=== PATIENT | male | born 1945 | race Caucasian/White ===

== ENCOUNTER 2022-01-05 17:34 | Inpatient (IN) | payer MEDICARE ==
[~2022-01-05] VITALS: Ht 172.7 cm; Wt 84.1 kg
[2022-01-05] MEDS: epiNEPHrine 5 MG in NS 250ml IV.SOLN IV SCH ×2 (18:07→23:00)
[2022-01-05 18:08] LABS: HEMOGLOBIN 12.6 g/dl (14.0-17.9)
[2022-01-05 18:10] LABS: BASOPHILS % (AUTO) 0.1 % (0-1); EOSINOPHILS % (AUTO) 0.1 % (0-6); HEMATOCRIT 38.2 % (42.0-52.0); LYMPHOCYTES # (AUTO) 0.8 X10'3 (1.1-4.8); MEAN CORPUSCULAR HEMOGLOBIN 30.4 PG (27.0-31.0); MEAN CORPUSCULAR VOLUME 92.2 FL (78-98); MEAN PLATELET VOLUME 8.4 FL (7.4-10.4); MONOCYTES # (AUTO) 0.5 X10'3 (0-0.9); MONOCYTES % (AUTO) 4.3 % (2-12); NEUTROPHILS # (AUTO) 10.2 X10'3 (1.8-7.7); NEUTROPHILS % (AUTO) 88.5 % (42-75); PLATELET COUNT 307 X10'3 (140-440); RED BLOOD COUNT 4.14 X10'6 (4.70-6.10); RED CELL DISTRIBUTION WIDTH 13.1 % (11.5-14.5); WHITE BLOOD COUNT 11.5 X10'3 (4.5-11.0)
[2022-01-05] MEDS ORDERED: morphine 2 MG/ML inj. syringe IV PRN (18:10)
[2022-01-05] MEDS ORDERED: acetaminophen 325mg tablet PO PRN ×2 (18:10)
[2022-01-05] MEDS ORDERED: potassium Cl 20 mEq SR tablet PO PRN ×2 (18:10)
[2022-01-05] MEDS ORDERED: morphine 4 MG/ML inj SYRINge IV PRN (18:10)
[2022-01-05] MEDS ORDERED: magnesium hydroxide 30ml (MOM) UD suspension PO PRN (18:10)
[2022-01-05] MEDS ORDERED: ondansetron/PF 4mg/2ml inj IV PRN (18:10)
[2022-01-05 18:16] LABS: APTT 23 SECONDS (22-32)
[2022-01-05 18:19] LABS: ALANINE AMINOTRANSFERASE 25 U/L (12-78); ALBUMIN 3.9 G/DL (3.4-5.0); ALBUMIN/GLOBULIN RATIO 1.2 (1.1-1.5); ALKALINE PHOSPHATASE 96 IU/L (46-116); ANION GAP 10 (8-16); ASPARTATE AMINO TRANSFERASE 39 U/L (10-37); BILIRUBIN,TOTAL 0.5 MG/DL (0.1-1.0); BLOOD UREA NITROGEN 21 MG/DL (7-18); BUN/CREATININE RATIO 13.1 (5.4-32.0); CALCIUM 8.8 MG/DL (8.5-10.1); CHLORIDE 105 MMOL/L (99-107); GLUCOSE 253 MG/DL (70-104); SODIUM 141 MMOL/L (135-145); TOTAL CARBON DIOXIDE 25.7 MMOL/L (24-32); TOTAL PROTEIN 7.2 G/DL (6.4-8.2); eGFR 42 ML/MIN
[2022-01-05 18:26] LABS: MAGNESIUM 2.1 MG/DL (1.5-2.4)
[2022-01-05] MEDS: normal saline 1000ml 1,000 ML IV SCH (18:39)
[2022-01-05] MEDS ORDERED: ATEN50TA PO (18:40)
[2022-01-05] MEDS ORDERED: OMEP20CA15 PO (18:40)
[2022-01-05] MEDS ORDERED: CARB1TAB24 PO (18:40)
[2022-01-05] MEDS ORDERED: CARB1TAB23 PO (18:52)
[2022-01-05] MEDS ORDERED: POLY119P2 PO (18:58)
[2022-01-05] MEDS ORDERED: DOCU100C40 PO (18:58)
[2022-01-05] MEDS ORDERED: TRAZ-251 PO (18:58)
[2022-01-05] MEDS ORDERED: CHOL200074 PO (18:58)
[2022-01-05] MEDS ORDERED: CYAN25006 SL (18:58)
[2022-01-05] MEDS ORDERED: MEMA10TA PO (18:58)
[2022-01-05] MEDS ORDERED: ESCI20TA25 PO (18:58)
--- NOTE | 2022-01-05 20:46 | NUR ---
pt resting on gurney in no acute distress pt aware waiting on admission.
--- NOTE | 2022-01-05 21:21 | NUR ---
Informed Joshua RN (patient's nurse) of patient's reported Troponin level of 803.
--- NOTE | 2022-01-05 21:32 | NUR ---
intensives aware pt trop 803. no new orders received
--- NOTE | 2022-01-05 22:30 | NUR ---
Patient in room CICU 2007. I have received report from Joshua CHRISTIANSEN from Emergency department and had the opportunity to ask questions and assume patient care.
[2022-01-05 23:00] VITALS: BP 126/54
[2022-01-06] VITALS (22 sets, daily range): BP systolic 90–171; BP diastolic 52–77
[2022-01-06] MEDS: carbidoba-levodopa 25-100mg tablet PO SCH ×5 (02:03→20:33)
[2022-01-06] MEDS: epiNEPHrine 5 MG in NS 250ml IV.SOLN IV SCH ×2 (03:53→09:24)
--- NOTE | 2022-01-06 04:03 | NUR ---
Patient is currently stable and in a regular cardiac rhythm. Epi is being titrated down as tolerated and is currently at 0.07ml/hr with HR at 85 and BP 112/52. Home meds have been reconciled and he has received his Parkinson's medication. He will be seen by cardiology in the AM and they will develop a plan then.
[2022-01-06] MEDS: normal saline 1000ml 1,000 ML IV SCH ×2 (04:10→07:58)
[2022-01-06 04:57] LABS: BASOPHILS % (AUTO) 0.1 % (0-1); EOSINOPHILS % (AUTO) 0 % (0-6); HEMATOCRIT 33.4 % (42.0-52.0); HEMOGLOBIN 11.4 g/dl (14.0-17.9); LYMPHOCYTES # (AUTO) 0.6 X10'3 (1.1-4.8); LYMPHOCYTES % (AUTO) 5.9 % (21-51); MEAN CORPUSCULAR HEMOGLOBIN 31.4 PG (27.0-31.0); MEAN CORPUSCULAR HGB CONC 34.3 g/dL (33.0-36.5); MEAN CORPUSCULAR VOLUME 91.6 FL (78-98); MEAN PLATELET VOLUME 8.1 FL (7.4-10.4); NEUTROPHILS # (AUTO) 8.2 X10'3 (1.8-7.7); PLATELET COUNT 214 X10'3 (140-440); RED BLOOD COUNT 3.65 X10'6 (4.70-6.10); RED CELL DISTRIBUTION WIDTH 13.4 % (11.5-14.5); WHITE BLOOD COUNT 9.7 X10'3 (4.5-11.0)
--- NOTE | 2022-01-06 05:00 | NUR ---
Patient converted to full block. Code blue was called and teledoc was put on. Epi was titrated back up to 0.2mcg and patient is being paced by portable defibrillator.
--- NOTE | 2022-01-06 05:10 | NUR ---
Charge nurse put out a page to web applications architect for consult. Awaiting callback.
[2022-01-06 05:13] LABS: ALBUMIN 3.4 G/DL (3.4-5.0); ANION GAP 11 (8-16); BLOOD UREA NITROGEN 27 MG/DL (7-18); BUN/CREATININE RATIO 18.9 (5.4-32.0); CALCIUM 9.1 MG/DL (8.5-10.1); CHLORIDE 102 MMOL/L (99-107); CREATININE 1.43 MG/DL (0.60-1.10); GLUCOSE 143 MG/DL (70-104); POTASSIUM 4.7 MMOL/L (3.5-5.1); SODIUM 139 MMOL/L (135-145); TOTAL CARBON DIOXIDE 25.7 MMOL/L (24-32); eGFR 48 ML/MIN
[2022-01-06] MEDS: pantoprazole 40mg Tablet.DR PO SCH (07:58)
[2022-01-06] MEDS: K and/or MAG REPLACEMENT MC SCH (08:00)
--- NOTE | 2022-01-06 10:01 | NUR ---
plan for pacer placement at 1230 and updated with plan
[2022-01-06] MEDS ORDERED: LIDOcaine 1% W/epiNEPHrine 1:100,000 20ml vial ONE (10:18)
[2022-01-06] MEDS ORDERED: midazolam 1 mg/ML 2ml injection ONE ×2 (10:18→14:12)
[2022-01-06] MEDS ORDERED: fentaNYL/PF 50MCG/1 ML 2ML syringe ONE (10:18)
[2022-01-06] MEDS ORDERED: ceFAZolin 1000mg inj ONE (10:23)
[2022-01-06] MEDS ORDERED: ceFAZolin 2gm in dextrose, iso 50 ML IV ONE (10:23)
--- NOTE | 2022-01-06 12:01 | NUR ---
pt to or for pacer placement with pathology lab technician staff
[2022-01-06 13:45] LABS: CHOL/HDL RATIO 3.8 (0.00-4.99); CHOLESTEROL 158 MG/DL (0-200); HDL CHOLESTEROL 42 MG/DL (35-60); LDL CHOLESTEROL 96 MG/DL (50-100); TRIGLYCERIDES 134 MG/DL (20-135)
[2022-01-06] MEDS ORDERED: DOPamine 400mg/D5W 250ml 250 ML IV ONE (14:55)
--- NOTE | 2022-01-06 15:30 | NUR ---
pt back from computer lab aide, pt placed on monitor shows regular rhythm with occasional pacer spikes. vss
[2022-01-06] MEDS ORDERED: HYDROcodone/acetaminophen 10/325mg tab PO PRN (16:00)
[2022-01-06] MEDS ORDERED: vancomycin/NS 1 GM ADD-VANTAGE 250 ML X 1 DOSE IV ONE (16:30)
[2022-01-06] MEDS: memantine 5mg tablet PO SCH (20:30)
[2022-01-06] MEDS: traZODone 50mg tablet PO SCH (20:31)
[2022-01-06] MEDS: docusate sod 100mg capsule PO SCH (20:31)
[2022-01-07] VITALS (21 sets, daily range): BP systolic 103–155; BP diastolic 55–82
[2022-01-07] MEDS: normal saline 1000ml 1,000 ML IV SCH ×3 (00:10→19:39)
[2022-01-07 05:50] LABS: BASOPHILS % (AUTO) 0.3 % (0-1); EOSINOPHILS # (AUTO) 0.1 X10'3 (0-0.9); EOSINOPHILS % (AUTO) 1.4 % (0-6); HEMATOCRIT 32.9 % (42.0-52.0); HEMOGLOBIN 11.1 g/dl (14.0-17.9); LYMPHOCYTES # (AUTO) 0.6 X10'3 (1.1-4.8); LYMPHOCYTES % (AUTO) 8.9 % (21-51); MEAN CORPUSCULAR HEMOGLOBIN 31.2 PG (27.0-31.0); MEAN CORPUSCULAR HGB CONC 33.9 g/dL (33.0-36.5); MEAN PLATELET VOLUME 8.3 FL (7.4-10.4); MONOCYTES # (AUTO) 0.5 X10'3 (0-0.9); MONOCYTES % (AUTO) 8.6 % (2-12); NEUTROPHILS # (AUTO) 5.1 X10'3 (1.8-7.7); NEUTROPHILS % (AUTO) 80.8 % (42-75); PLATELET COUNT 135 X10'3 (140-440); RED BLOOD COUNT 3.57 X10'6 (4.70-6.10); RED CELL DISTRIBUTION WIDTH 13.3 % (11.5-14.5); WHITE BLOOD COUNT 6.4 X10'3 (4.5-11.0)
[2022-01-07 05:56] LABS: ALBUMIN 3.3 G/DL (3.4-5.0); ANION GAP 7 (8-16); BLOOD UREA NITROGEN 27 MG/DL (7-18); BUN/CREATININE RATIO 24.5 (5.4-32.0); CALCIUM 8.6 MG/DL (8.5-10.1); CHLORIDE 107 MMOL/L (99-107); GLUCOSE 89 MG/DL (70-104); POTASSIUM 4.6 MMOL/L (3.5-5.1); SODIUM 142 MMOL/L (135-145); eGFR 65 ML/MIN
[2022-01-07] MEDS: ESCITALOPRAM OXALATE 5 MG TABLET PO SCH (07:57)
[2022-01-07] MEDS: pantoprazole 40mg Tablet.DR PO SCH (07:58)
[2022-01-07] MEDS: cholecalciferol (vitamin D3) 1,000 unit (25mcg) tablet PO SCH (07:58)
[2022-01-07] MEDS: polyethylene glycol 3350 17gm powd pack PO SCH (07:58)
[2022-01-07] MEDS: HYDROcodone/acetaminophen 5mg/325mg tablet PO PRN ×2 (07:58→17:33)
[2022-01-07] MEDS: cyanocobalamin 500mcg tablet PO SCH (07:58)
[2022-01-07] MEDS: memantine 5mg tablet PO SCH ×2 (07:58→21:34)
[2022-01-07] MEDS: carbidoba-levodopa 25-100mg tablet PO SCH ×4 (07:58→21:33)
[2022-01-07] MEDS: K and/or MAG REPLACEMENT MC SCH (08:00)
[2022-01-07] MEDS: cephalexin 500mg capsule PO SCH ×3 (08:30→21:34)
--- NOTE | 2022-01-07 15:31 | NUR ---
Patient assisted up to chair at this time. Transfer very unsteady. Patient weak and shaky. X2 assist for stand and pivot. Call light remains within reach
--- NOTE | 2022-01-07 17:15 | NUR ---
Pt. arrived to PCU and oriented to floor; pt complaining of pain in arm where pacer was placed; Pt. arm in sling and educated on importance of limiting motion in that arm. VSS; Pt alert and oriented X4 and [facility]
--- NOTE | 2022-01-07 18:19 | NUR ---
Problems reprioritized. Patient report given, questions answered & plan of care reviewed with Bryan CHRISTIANSEN.
[2022-01-07] MEDS: docusate sod 100mg capsule PO SCH (21:33)
[2022-01-07] MEDS: traZODone 50mg tablet PO SCH (21:34)
--- NOTE | 2022-01-08 01:37 | NUR ---
76 year old male, admitted 01/05/2022, day 3 of hospitalization, Full code, NDA, no restraints, no isolation. Pt with known history of Parkinson's, presents from [facility] with dizziness and new third degree heart block. Patient's dizziness began approximately 24 hours ago. Possible syncopy. Patient notes that it did not worsen but it was not alleviated. He describes his dizziness as feeling weak and lightheaded. Patient was unable to perform activities of daily living and contacted medics to take him to [facility]. At that time, medics noticed that the patient had a third-degree heart block. Patient was placed on a monitor with anterior and posterior pacer pads. in Er started on epi and now out of 3rd degree heart block Currently, Pt is s/pacer placement, 01/06/2022, Left chest wall. Sling to left arm. Pt is afebrile, AAO times 4 moves all extremities, with notable generalized weakness. follows all commands. Monitor #32, no pacer spike noted, SR 70, BP 124/66, good pulses, trace edema. RR 16 PO 98% RA. Breath sounds, clear, equal symmetrical, non labored. Hypoactive bowel sounds, no BM. soft non tender, non distended. hear healthy diet. Voids vial urinal. Clear yellow urine. Skin intact, left chest wall incision clean dry intact. no drainage noted. Pt remains safe. Continue to monitor.
[2022-01-08 02:54] VITALS: BP 145/74
[2022-01-08] MEDS: normal saline 1000ml 1,000 ML IV SCH ×2 (03:41→13:59)
[2022-01-08 06:00] VITALS: BP 124/74
[2022-01-08 06:31] LABS: ALBUMIN 2.9 G/DL (3.4-5.0); ANION GAP 10 (8-16); BLOOD UREA NITROGEN 26 MG/DL (7-18); BUN/CREATININE RATIO 24.8 (5.4-32.0); CALCIUM 8.6 MG/DL (8.5-10.1); CHLORIDE 104 MMOL/L (99-107); CREATININE 1.05 MG/DL (0.60-1.10); GLUCOSE 99 MG/DL (70-104); MAGNESIUM 1.8 MG/DL (1.5-2.4); POTASSIUM 4.1 MMOL/L (3.5-5.1); SODIUM 140 MMOL/L (135-145); eGFR 68 ML/MIN
[2022-01-08 06:40] LABS: BASOPHILS % (AUTO) 0.3 % (0-1); EOSINOPHILS # (AUTO) 0.2 X10'3 (0-0.9); EOSINOPHILS % (AUTO) 2.7 % (0-6); HEMATOCRIT 31.7 % (42.0-52.0); HEMOGLOBIN 11.2 g/dl (14.0-17.9); LYMPHOCYTES # (AUTO) 0.7 X10'3 (1.1-4.8); LYMPHOCYTES % (AUTO) 9.8 % (21-51); MEAN CORPUSCULAR HEMOGLOBIN 32.3 PG (27.0-31.0); MEAN CORPUSCULAR HGB CONC 35.2 g/dL (33.0-36.5); MEAN CORPUSCULAR VOLUME 91.6 FL (78-98); MEAN PLATELET VOLUME 8.1 FL (7.4-10.4); MONOCYTES # (AUTO) 0.7 X10'3 (0-0.9); MONOCYTES % (AUTO) 9.6 % (2-12); NEUTROPHILS # (AUTO) 5.6 X10'3 (1.8-7.7); NEUTROPHILS % (AUTO) 77.6 % (42-75); PLATELET COUNT 137 X10'3 (140-440); RED BLOOD COUNT 3.47 X10'6 (4.70-6.10); RED CELL DISTRIBUTION WIDTH 13.5 % (11.5-14.5); WHITE BLOOD COUNT 7.2 X10'3 (4.5-11.0)
[2022-01-08] MEDS: memantine 5mg tablet PO SCH ×2 (07:55→20:10)
[2022-01-08] MEDS: cholecalciferol (vitamin D3) 1,000 unit (25mcg) tablet PO SCH (07:55)
[2022-01-08] MEDS: cyanocobalamin 500mcg tablet PO SCH (07:55)
[2022-01-08] MEDS: carbidoba-levodopa 25-100mg tablet PO SCH ×4 (07:55→20:11)
[2022-01-08] MEDS: pantoprazole 40mg Tablet.DR PO SCH (07:56)
[2022-01-08] MEDS: cephalexin 500mg capsule PO SCH ×3 (07:56→20:11)
[2022-01-08] MEDS: polyethylene glycol 3350 17gm powd pack PO SCH (07:56)
[2022-01-08] MEDS: ESCITALOPRAM OXALATE 5 MG TABLET PO SCH (08:00)
[2022-01-08] MEDS ORDERED: regadenoson 0.4mg/5ml syringe IV PRN (08:00)
[2022-01-08] MEDS ORDERED: metoprolol tartrate 1mg/ml inj IV PRN (08:00)
[2022-01-08] MEDS: K and/or MAG REPLACEMENT MC SCH (08:00)
[2022-01-08] MEDS ORDERED: nitroGLYCERIN 0.4mg SUBLingual tab SL PRN (08:00)
[2022-01-08] MEDS ORDERED: aminophylline 250mg/10ml inj. IV PRN (08:00)
[2022-01-08 11:00] VITALS: BP 96/64
--- NOTE | 2022-01-08 14:12 | NUR ---
Important: please have patient NPO after midnight for monday morning stress test, no caffeine after 6pm on monday.
[2022-01-08 15:00] VITALS: BP 102/68
[2022-01-08 18:00] VITALS: BP 118/64
[2022-01-08] MEDS: traZODone 50mg tablet PO SCH (20:10)
[2022-01-08] MEDS: docusate sod 100mg capsule PO SCH (20:11)
[2022-01-08 22:00] VITALS: BP 142/71
[2022-01-09] VITALS (14 sets, daily range): BP systolic 127–174; BP diastolic 60–86
--- NOTE | 2022-01-09 01:39 | NUR ---
76 year old male, admitted 01/05/2022, day 4 of hospitalization, Full code, NDA, no restraints, no isolation. Pt with known history of Parkinson's, presents from [facility] with dizziness and new third degree heart block. Patient's dizziness began approximately 24 hours ago. Possible syncopy. Patient notes that it did not worsen but it was not alleviated. He describes his dizziness as feeling weak and lightheaded. Patient was unable to perform activities of daily living and contacted medics to take him to [facility]. At that time, medics noticed that the patient had a third-degree heart block. Patient was placed on a monitor with anterior and posterior pacer pads. in Er started on epi and now out of 3rd degree heart block Currently, Pt is s/p pacer placement, 01/06/2022, Left chest wall. Sling to left arm. Pt is afebrile, AAO times 4 moves all extremities, with notable generalized weakness. follows all commands. Monitor #32, no pacer spike noted, SR 70, BP 124/66, good pulses, trace edema. Scheduled for Lexiscan in the AM. RR 16 PO 98% RA. Breath sounds, clear, equal symmetrical, non labored. Hypoactive bowel sounds, no BM. soft non tender, non distended. NPO for procedure/test in the AM. Voids vial urinal. Clear yellow urine. Skin intact, left chest wall incision clean dry intact. no drainage noted. Pt remains safe. Continue to monitor.
[2022-01-09] MEDS: normal saline 1000ml 1,000 ML IV SCH ×2 (02:10→07:47)
[2022-01-09] MEDS: pantoprazole 40mg Tablet.DR PO SCH (07:51)
[2022-01-09] MEDS: memantine 5mg tablet PO SCH ×2 (07:51→21:09)
[2022-01-09] MEDS: cephalexin 500mg capsule PO SCH ×3 (07:51→21:08)
[2022-01-09] MEDS: carbidoba-levodopa 25-100mg tablet PO SCH ×4 (07:51→21:09)
[2022-01-09 08:26] LABS: ALBUMIN 2.9 G/DL (3.4-5.0); ANION GAP 7 (8-16); BLOOD UREA NITROGEN 21 MG/DL (7-18); BUN/CREATININE RATIO 20.8 (5.4-32.0); CALCIUM 8.5 MG/DL (8.5-10.1); CHLORIDE 107 MMOL/L (99-107); CREATININE 1.01 MG/DL (0.60-1.10); GLUCOSE 103 MG/DL (70-104); MAGNESIUM 1.7 MG/DL (1.5-2.4); POTASSIUM 4.2 MMOL/L (3.5-5.1); SODIUM 141 MMOL/L (135-145); TOTAL CARBON DIOXIDE 26.6 MMOL/L (24-32); eGFR 72 ML/MIN
[2022-01-09] MEDS ORDERED: PERFLUTREN PROTEIN-A MICROSPHR (Optison) 0.22 MG/ML 3ML VIAL IV ONE (08:50)
[2022-01-09 08:51] LABS: BASOPHILS % (AUTO) 0.4 % (0-1); EOSINOPHILS # (AUTO) 0.2 X10'3 (0-0.9); EOSINOPHILS % (AUTO) 4.5 % (0-6); HEMOGLOBIN 11.1 g/dl (14.0-17.9); LYMPHOCYTES # (AUTO) 0.6 X10'3 (1.1-4.8); LYMPHOCYTES % (AUTO) 13.5 % (21-51); MEAN CORPUSCULAR HEMOGLOBIN 31.4 PG (27.0-31.0); MEAN CORPUSCULAR HGB CONC 34.6 g/dL (33.0-36.5); MEAN CORPUSCULAR VOLUME 90.9 FL (78-98); MEAN PLATELET VOLUME 8.2 FL (7.4-10.4); MONOCYTES # (AUTO) 0.5 X10'3 (0-0.9); NEUTROPHILS # (AUTO) 3.3 X10'3 (1.8-7.7); NEUTROPHILS % (AUTO) 70.6 % (42-75); PLATELET COUNT 141 X10'3 (140-440); RED BLOOD COUNT 3.52 X10'6 (4.70-6.10); RED CELL DISTRIBUTION WIDTH 13.5 % (11.5-14.5); WHITE BLOOD COUNT 4.7 X10'3 (4.5-11.0)
[2022-01-09] MEDS ORDERED: regadenoson 0.4mg/5ml syringe IV PRN (09:45)
[2022-01-09] MEDS ORDERED: aminophylline 500mg/20ml vial IV PRN (09:45)
--- NOTE | 2022-01-09 10:48 | NUR ---
Patient still in the having a stress test done
[2022-01-09] MEDS: polyethylene glycol 3350 17gm powd pack PO SCH (11:15)
[2022-01-09] MEDS: cyanocobalamin 500mcg tablet PO SCH (11:15)
[2022-01-09] MEDS: cholecalciferol (vitamin D3) 1,000 unit (25mcg) tablet PO SCH (11:15)
[2022-01-09] MEDS: ESCITALOPRAM OXALATE 5 MG TABLET PO SCH (11:16)
[2022-01-09] MEDS ORDERED: bisacodyl 10mg suppository rectal RC PRN (11:30)
--- NOTE | 2022-01-09 11:44 | NUR ---
Initial: Pt admitted w/ third degree heartblock, received pacemaker / per EMR. Currently on Heart Healthy diet w/ mostly 100% intake of meals, though was NPO this morning for stress test. Overall meeting est nutrient needs though recommend liberalizing to Regular diet given lipid panel WNL. LBM 4/5 receiving routine bowel care. No nutrition intervention implemented at this time, will continue to monitor. Recs: 1. Liberalize to Regular diet; lipids WNL 2. Routine bowel care; 5 days constipation 3. Scaled wts Addendum: 01/09/22 at [address] Amended: Links added.
[2022-01-09] MEDS: aspirin 81mg, enteric-coated 1 TAB TABLET.DR PO SCH (14:34)
[2022-01-09] MEDS: metoprolol tartrate 12.5mg (1/2 tablet) PO SCH (20:00)
[2022-01-09] MEDS: traZODone 50mg tablet PO SCH (21:10)
[2022-01-09] MEDS: docusate sod 100mg capsule PO SCH (21:11)
[2022-01-10 02:00] VITALS: BP 144/82
[2022-01-10] MEDS: normal saline 1000ml 1,000 ML IV SCH (06:23)
--- NOTE | 2022-01-10 06:38 | NUR ---
Patient in room PCU 3012. I have received report from Karl CHRISTIANSEN and had the opportunity to ask questions and assume patient care. Patient is resting in bed in no acute distress.
[2022-01-10 07:00] VITALS: BP 144/75
[2022-01-10 07:03] LABS: BASOPHILS % (AUTO) 0.3 % (0-1); EOSINOPHILS # (AUTO) 0.2 X10'3 (0-0.9); EOSINOPHILS % (AUTO) 5.1 % (0-6); HEMATOCRIT 32.2 % (42.0-52.0); HEMOGLOBIN 10.9 g/dl (14.0-17.9); LYMPHOCYTES # (AUTO) 0.5 X10'3 (1.1-4.8); LYMPHOCYTES % (AUTO) 12.4 % (21-51); MEAN CORPUSCULAR HEMOGLOBIN 30.8 PG (27.0-31.0); MEAN CORPUSCULAR HGB CONC 33.8 g/dL (33.0-36.5); MEAN CORPUSCULAR VOLUME 91.2 FL (78-98); MEAN PLATELET VOLUME 7.7 FL (7.4-10.4); MONOCYTES # (AUTO) 0.5 X10'3 (0-0.9); MONOCYTES % (AUTO) 11.9 % (2-12); NEUTROPHILS % (AUTO) 70.3 % (42-75); PLATELET COUNT 146 X10'3 (140-440); RED BLOOD COUNT 3.53 X10'6 (4.70-6.10); WHITE BLOOD COUNT 4.3 X10'3 (4.5-11.0)
[2022-01-10 07:25] LABS: ANION GAP 5 (8-16); BLOOD UREA NITROGEN 17 MG/DL (7-18); BUN/CREATININE RATIO 16.2 (5.4-32.0); CALCIUM 8.6 MG/DL (8.5-10.1); CHLORIDE 108 MMOL/L (99-107); CREATININE 1.05 MG/DL (0.60-1.10); GLUCOSE 103 MG/DL (70-104); POTASSIUM 4.1 MMOL/L (3.5-5.1); SODIUM 141 MMOL/L (135-145); TOTAL CARBON DIOXIDE 28.2 MMOL/L (24-32); eGFR 68 ML/MIN
[2022-01-10 07:38] LABS: MAGNESIUM 1.8 MG/DL (1.5-2.4)
[2022-01-10] MEDS ORDERED: atorvastatin 20mg tablet PO SCH (08:00)
[2022-01-10] MEDS: cholecalciferol (vitamin D3) 1,000 unit (25mcg) tablet PO SCH (08:34)
[2022-01-10] MEDS: cyanocobalamin 500mcg tablet PO SCH (08:35)
[2022-01-10] MEDS: ESCITALOPRAM OXALATE 5 MG TABLET PO SCH (08:35)
[2022-01-10] MEDS: metoprolol tartrate 12.5mg (1/2 tablet) PO SCH (08:35)
[2022-01-10] MEDS: cephalexin 500mg capsule PO SCH ×2 (08:36→12:21)
[2022-01-10] MEDS: aspirin 81mg, enteric-coated 1 TAB TABLET.DR PO SCH (08:36)
[2022-01-10] MEDS: carbidoba-levodopa 25-100mg tablet PO SCH ×2 (08:36→12:21)
[2022-01-10] MEDS: memantine 5mg tablet PO SCH (08:36)
[2022-01-10] MEDS: pantoprazole 40mg Tablet.DR PO SCH (08:36)
[2022-01-10] MEDS: polyethylene glycol 3350 17gm powd pack PO SCH (08:36)
[2022-01-10 11:00] VITALS: BP 145/78
--- NOTE | 2022-01-10 12:13 | NUR ---
report called to Daisha SORIANO at [facility] at [phone]
--- NOTE | 2022-01-10 13:21 | NUR ---
Patient left with [facility] personnel. Family took all belongings. Report called to . PIV x2 were removed with cannula intact. Patient alert, oriented, appropriate and pleasant at time of transfer.
== END 2022-01-10 13:18 | DRG 242 ==
LOC: ER 17:35 → ED HOLD 18:18 → CICU 2S 22:09 → PCU 3S 01-07 17:11
PROVIDERS: ADMIT Surgery; ATTEND Surgery
PROC: 0JH606Z Insertion of Pacemaker, Dual Chamber into Chest Subcutaneous Tissue and Fascia, Open Approach (ICD-10-PCS; principal; 2022-01-06)
PROC: 02H63JZ Insertion of Pacemaker Lead into Right Atrium, Percutaneous Approach (ICD-10-PCS; 2022-01-06)
PROC: 02HK3JZ Insertion of Pacemaker Lead into Right Ventricle, Percutaneous Approach (ICD-10-PCS; 2022-01-06)
PROC: 4A02XM4 Measurement of Cardiac Total Activity, External Approach (ICD-10-PCS; 2022-01-09)
PROC: 3E033HZ Introduction of Radioactive Substance into Peripheral Vein, Percutaneous Approach (ICD-10-PCS; 2022-01-09)
DX: I44.2 Atrioventricular block, complete (principal); I21.A1 Myocardial infarction type 2; R57.0 Cardiogenic shock; N17.9 Acute kidney failure, unspecified; N18.2 Chronic kidney disease, stage 2 (mild); G20 Parkinson's disease; Z20.822 Contact with and (suspected) exposure to COVID-19; I12.9 Hypertensive chronic kidney disease with stage 1 through stage 4 chronic kidney disease, or unspecified chronic kidney disease; F02.80 Dementia in other diseases classified elsewhere, unspecified severity, without behavioral disturbance, psychotic disturbance, mood disturbance, and anxiety; F32.A Depression, unspecified; K21.9 Gastro-esophageal reflux disease without esophagitis; I49.5 Sick sinus syndrome; Z79.899 Other long term (current) drug therapy; Z87.891 Personal history of nicotine dependence
CPT/HCPCS: 33208; 36415; 71046; 78452; 80048; 80053; 80061; 82948; 83735; 83880; 84443; 84484; 85025; 85379; 85610; 85730; 87635; 92950; 93005; 93017; 93306; 97116; 97161; 97530; 99152; 99153; 99291; A4620; A9500; C1785; C1894; C1898; G0378; J0171; J0690; J1265; J2250; J2785; J3010; J3370; J3490; J7030; J7050